=== PATIENT | female | born 1955 | race Caucasian/White ===

== ENCOUNTER 2019-12-17 09:23 | Outpatient (CLI) | payer MEDICARE, OTHER, SELFPAY ==
[2019-12-20 14:18] LABS: Patient Race White; SARS-CoV-2 RNA Undetected (Undetected); SARS-CoV-2 Specimen Source Nasal
== END 2019-12-17 09:43 ==
PROVIDERS: PCP Emergency Medicine; Visit Provider Emergency Medicine
DX: Z11.59 Encounter for screening for other viral diseases (principal)
CPT/HCPCS: U0003

== ENCOUNTER 2020-01-14 01:19 | Outpatient (CLI) | payer MEDICARE, OTHER, SELFPAY ==
--- NOTE | 2020-01-14 08:45 | DI.MAMMO_ITS ---
EXAM: MG MAMMO SCREENING 60 MIN DUR CLINICAL HISTORY: breast cancer screening,Z12.39. TECHNIQUE: Bilateral full field digital CC and MLO mammographic images were obtained with 3D tomosyn thesis and utilizing computer aided detection (CAD). Both conventional and implant displacement views were performed. COMPARISON: Prior mammograms dating back to 2013, the most recent being July 2017. FINDINGS: There are bilateral retropectoral implants. There are no new dominant masses nor malignant appearing microcalcification groups. There is no new architectural distortion nor skin thickening-retraction. IMPRESSION: No radiographic evidence of malignancy. Retropectoral implants again noted. BI-RADS Category 1 - Negative Breast Density - Category B - Scattered areas of fibroglandular density Breast density Category C or D implies that the patient has dense breast tissue. Dense breast tissue can make it harder to find cancer on a mammogram. Dense breast tissue is also associated with an incr eased risk of breast cancer. This information about the result of the mammogram report was provided to the patient to raise their awareness. Use this report when you speak with the patient about their risks for breast cancer, which includes their family history. At that time, you may recommend additional screening tests (Ultrasoun d or MRI) as these tests may add significant information. A negative radiographic report should not delay biopsy if a dominant or clinically suspicious mass is present. Up to ten percent of cancers are not identified on mammography. A negative report may reinforce clinical impression. Adenosis and dense breasts may obscure an underlying neoplasm. False positive reports average 6 to 10%. Patient will receive a letter notifying them of these results.
== END 2020-01-14 01:39 ==
PROVIDERS: PCP Emergency Medicine; Visit Provider Emergency Medicine
DX: Z12.31 Encounter for screening mammogram for malignant neoplasm of breast (principal); Z98.82 Breast implant status
CPT/HCPCS: 77063; 77067

== ENCOUNTER → 2020-02-28 14:59 | Outpatient (BNVA) | payer MEDICARE, OTHER, SELFPAY | PROVIDERS: PCP Emergency Medicine; Referring Provider Emergency Medicine; Visit Provider Physical Therapy Assistant | DX: Z12.11 Encounter for screening for malignant neoplasm of colon (principal); Z80.0 Family history of malignant neoplasm of digestive organs ==

== ENCOUNTER 2020-03-06 04:28 | Outpatient (CLI) | payer MEDICARE, OTHER, SELFPAY ==
[2020-03-07 22:11] LABS: COVID-19 RT-PCR Result NEGATIVE (Negative)
== END 2020-03-06 04:48 ==
PROVIDERS: PCP Emergency Medicine; Visit Provider Surgery
DX: Z11.52 Encounter for screening for COVID-19 (principal); Z01.818 Encounter for other preprocedural examination
CPT/HCPCS: U0003

== ENCOUNTER 2020-03-06 18:34 | Outpatient (CLI) | payer MEDICARE, OTHER, SELFPAY ==
--- NOTE | 2020-03-06 09:30 | DI.RAD_ITS ---
EXAM: XR FEMUR LT CLINICAL HISTORY: Leg injury, ran into chair, S89.90XA. TECHNIQUE: 2D digital imaging was performed. COMPARISON: No exams were available for comparison FINDINGS: BONES: No acute fracture is present. No bony destructive lesion is seen. Visualized portion of knee a nd hip joints are unremarkable. SOFT TISSUE: Normal. IMPRESSION: No acute fracture or dislocation. DATA REPOSITORY: RADIATION DOSE DELIVERED:
== END 2020-03-06 18:54 ==
PROVIDERS: PCP Emergency Medicine; Visit Provider Nurse Practitioner Family
DX: M79.652 Pain in left thigh (principal); S79.822A Other specified injuries of left thigh, initial encounter; Z11.52 Encounter for screening for COVID-19; Z01.818 Encounter for other preprocedural examination
CPT/HCPCS: 73552; U0003

== ENCOUNTER 2020-03-14 09:53 | Outpatient (CLI) | payer MEDICARE, OTHER, SELFPAY ==
--- NOTE | 2020-03-14 14:47 | DI.RAD_ITS ---
EXAM: XR LUMBAR SPINE COMPLETE CLINICAL HISTORY: left sciatic pain, pain lt hip, M25.552. TECHNIQUE: 2D digital imaging was performed. COMPARISON: No exams were available for comparison FINDINGS: There are no compression fractures. There is mild degenerative anterolisthesis of L4 upon L5 and mod erate disc space narrowing is noted at this level. More advanced disc space narrowing is seen at L5- S1. There posterior epidural leads at L5 level with the subcutaneous device. There is also evidence of previous lower lumbar spine surgery head L4-5 level bone graft material bilaterally. Some degene rative changes seen in the facet joints at the lower 2 levels. Sacroiliac joints appear age-appropri ate. No scoliosis. No osseous lesions. IMPRESSION: Degenerative disc disease. Previous surgery with removal of posterior osseous elements in the lower lumbar spine, bone graft material, and posterior epidural leads. DATA REPOSITORY: RADIATION DOSE DELIVERED:
== END 2020-03-14 10:13 ==
PROVIDERS: PCP Emergency Medicine; Visit Provider Emergency Medicine
DX: M51.16 Intervertebral disc disorders with radiculopathy, lumbar region (principal); M48.07 Spinal stenosis, lumbosacral region; M25.552 Pain in left hip
CPT/HCPCS: 72110

== ENCOUNTER 2020-06-06 08:37 | Outpatient (CLI) | payer MEDICARE, OTHER, SELFPAY ==
[2020-06-07 12:23] LABS: COVID-19 RT-PCR UVMMC Result Negative (Negative)
== END 2020-06-06 08:38 | disposition home or self-care (01) ==
PROVIDERS: PCP Emergency Medicine; Visit Provider Emergency Medicine
DX: Z20.822 Contact with and (suspected) exposure to COVID-19 (principal)
CPT/HCPCS: U0003; U0005

== ENCOUNTER 2020-09-16 02:29 | Outpatient (CLI) | payer MEDICARE, OTHER, SELFPAY ==
--- NOTE | 2020-09-16 08:27 | DI.CT_ITS ---
Exam(s) CT BRAIN NECK CTA EXAM: CT BRAIN NECK CTA CLINICAL HISTORY: pulsatile tinnitus left ear,H93.A2. TECHNIQUE: Imaging Protocol: Axial CT angiography was performed with multi-slice acquisition and mu lti-planar and/or 3D reconstructions. CONTRAST MATERIAL: Intravenous: Omnipaque 350 Contrast volume:structured data in ml COMPARISON: No exams were available for comparison FINDINGS: CT angiography of the cervical cranial region was performed according to the usual protocol with intr avenous infusion of 85 cc of Omnipaque 350.. Initial noncontrast scanning of the head is unremarkable. Visualized lung apices are clear. Visualized portions of thoracic aorta and pulmonary arterial circul ation are unremarkable. There is no evidence of a cervical mass or adenopathy. The tracheal laryngeal structures appear intact. The common, internal, and external carotid arteries are within normal limits in the cervical region w ith no evidence of aneurysm, stenosis, or dissection. The vertebral arteries are unremarkable in appearance in the cervical region with no evidence of aneu rysm, stenosis, or dissection. There is a left dominant vertebral artery. Intracranial portions of the internal carotid arteries appear normal with no evidence of aneurysm, st enosis, or dissection. There is a deformity of the contour of the vessels at the junction of the vertebral arteries and basi lar artery. This may represent tortuous small distal right vertebral artery, a proximal fenestrated segment of the basilar artery, or less likely small thrombus. Additional evaluation with catheter an giography may be considered if clinically indicated. No aneurysm identified in the region of the [id number]. The anterior, middle, and posterior cer ebral arteries and major branches appear intact with no evidence of aneurysm, stenosis, or dissection . No enhancing brain lesion identified. IMPRESSION: Questionable finding at the junction of vertebral arteries and basilar artery, contour deformity may represent tortuosity of the distal right vertebral artery versus fenestration of the proximal basilar artery, thrombus not excluded at this site. Additional evaluation with catheter angiography may be considered if clinically appropriate. RADIATION DOSE DELIVERED: 1,807.93mGy.cmTotal DLP 1,807.93mGy.cm Total DLP CTDIvol DATA REPOSITORY: All CT scans at this facility are submitted to the National Radiology Data Registry (NRDR) Dose Index Registry (DIR) with the [employer] (ACR). RADIATION OPTIMIZATION: All CT scans at this facility use at least one of these dose optimization te chniques: automated exposure control; mA and/or kV adjustment per patient size (includes targeted exa ms where dose is matched to clinical indication); or iterative reconstruction.
[2020-09-16 13:06] LABS: CREATININE 0.5 mg/dL (0.55-1.02)
[2020-09-16] MEDS: Omnipaque 350 MG/ML 100 ML BTL IJ (13:38)
[2020-09-16] MEDS: Normal Saline Flush 10 ML SYR IVP (13:39)
[2020-09-16] MEDS: Normal Saline - Diluent 50 ML VIAL IV (13:39)
== END 2020-09-16 02:49 ==
PROVIDERS: PCP Emergency Medicine; Visit Provider Emergency Medicine
DX: H93.A2 Pulsatile tinnitus, left ear (principal)
CPT/HCPCS: 70496; 70498; 82565; J3490

== ENCOUNTER → 2020-11-27 15:22 | Outpatient (BNVA) | payer MEDICARE, OTHER, SELFPAY | PROVIDERS: PCP Emergency Medicine; Referring Provider Emergency Medicine; Visit Provider Physical Therapy Assistant | DX: Z12.11 Encounter for screening for malignant neoplasm of colon (principal); Z80.0 Family history of malignant neoplasm of digestive organs ==

== ENCOUNTER 2020-12-05 01:46 | Outpatient (CLI) | payer MEDICARE, OTHER, SELFPAY ==
[2020-12-05 10:14] LABS: Source Nasal/Nares
[2020-12-05 12:57] LABS: COVID-19 PCR Negative (Negative)
== END 2020-12-05 01:47 | disposition home or self-care (01) ==
LOC: LBO 01:47
PROVIDERS: PCP Emergency Medicine; Visit Provider Surgery
DX: Z20.822 Contact with and (suspected) exposure to COVID-19 (principal); Z01.818 Encounter for other preprocedural examination
CPT/HCPCS: 87635

== ENCOUNTER 2020-12-08 06:13 | Day surgery (SDC) | payer MEDICARE, OTHER, SELFPAY ==
[2020-12-08 06:25] VITALS: BP 119/63; PULSE 73; RESP 16; TEMP 36.2; O2SAT 98
--- NOTE | 2020-12-08 06:35 | W.COLOREPORT ---
Colonoscopy Report Date of procedure: 12/08/20 Pre-op diagnosis general: Colon cancer screening Post-op diagnosis procedure note: other (polyps and internal hemorrhoid) Procedure: Colonoscopy with polypectomy Surgeon: Carla Gutierres Anesthesia Type: General:No Airway (Rosibel Montes CRNA) Estimated blood loss (mL): 3 Pathology: other (ascending polyp, transverse polyp and sigmoid polyp) Complications: None Disposition: same day Indications: The patient is here for Colonoscopy pre-op. Her last screening was in 2008 and was unremarkable. She has no family history of colon cancer. She has not had any bowel habit changes. -Discussed colonoscopy bowel prep as well as the procedure. Discussed possible complications of the procedure to include bleeding, pain, perforation, missed small lesion/polyp, sore throat, aspiration and adverse reaction to the medications. Questions were answered to patient?s satisfaction. No guarantees were implied or given. Prep: Miralax/Dulcolax Procedure Start Time: 07:30 Procedure End Time: 07:55 Retraction Time: 15 minutes Findings: 3 small polyp internal hemorrhoid tag Procedure Description: After informed consent was obtained the patient was taken to the procedure room and placed in a left decubitous position. Monitors were applied and a time out was done. The patients name, date of , procedure, allergies to medications and metal in their body was reviewed. The patient was then sedated. Once sedated and comfortable a rectal exam was done. External exam was normal. Internal exam revealed a normal sphincter tone and no palpable masses. The scope was then introduced and retro-flexed. One internal hemorrhoid skin tag was identified on retroflexion. No polyps or masses were identified on retro-flexion. The scope was then advanced to the cecum without difficulty. The ileocecal vlave and appendiceal orifice were identified. The prep was adequate. The scope was then slowly retracted over 15 minutes back into the rectum. Polyps were removed with cold forceps in the proximal ascending polyp, proximal transverse polyp and distal sigmoid colon. There was no diverticulosis noted. The scope was removed and the patient was woken up and taken back to Same day surgery in stable condition. The patient tolerated the procedure well and there were no immediate complications. Follow up: The patient should follow up in 5 years unless they develop changes in bowel habits or other new gastrointestinal complaints.
--- NOTE | 2020-12-08 06:36 | W.PM.DSUDISC ---
Discharge Plan Disposition Patient Disposition: HOME Condition: Good Discharge Details Reason For Visit: Colonoscopy Attending Provider: Carla Gutierres Primary Care Provider: Ti Samuels Home Meds and New Rx's Prescriptions: Continued melatonin 5 mg tablet 5 mg PO HS PRNRF: 0 CENTRUM SILVER TABLET 1 EACH tablet 1 ea PO DAILY RF: 0 Discontinued bisacodyl [Dulcolax (bisacodyl)] 5 mg tablet,delayed release (DR/EC) 5 mg PO ONCE Qty: 4 RF: 0 polyethylene glycol 3350 17 gram/dose powder 17 g PO ONCE Qty: 238 RF: 0 Discharge Instructions Instructions: Colorectal Polyps (DC) Additional Instructions: Findings: 3 polyps Internal hemorrhoid Follow up: 5 years Please call if you develop: fevers >101.5 Nausea or Vomiting Abdominal pain that is not transient Rectal bleeding that is more then a tbsp A hard abdomen and inability to pass gas DAY SURGERY UNIT POST ENDOSCOPY INSTRUCTIONS Instructions for everyone who is given Anesthesia: For your safety, please do the following for the next 24 Hours: a. Do not drive or operate dangerous equipment b. Do not drink alcohol beverages or use any recreational drugs for the first 24 hours or while taking pain medications. The medications in your body may have a reaction that can be dangerous. c. Do not make any important decisions or sign any important papers 1. Generally there are no restrictions on your activity after a day or so has gone by, but you may feel a bit fatigued for a few days. 2. After you arrive home you may have a light meal and return to a normal diet as you can tolerate it without feeling sick to your stomach. 3. After surgery, you may feel pain or discomfort. This should be only transient, but if it persists please contact your doctor. 4. If there are any questions regarding the findings of your procedure, please feel free to contact your doctor. 6. If you are unable to contact your doctor with a problem, contact the hospital at [phone]. 7. Continue all your regular medications unless directed otherwise. I understand the above instructions and have no questions. Signature of Patient or Responsible Adult Escort Date/Time Name of Responsible Adult Escort Signature of Nurse Date/Time Activity:: Activity as Tolerated Diet:: As Tolerated Discharge Orders Discharge Orders: Discharge Order (Routine); Ordered 12/08/20 Ordered By: Carla Gutierres
[2020-12-08] MEDS: Lactated Ringers 1,000 ML 80 ML IV (06:56)
--- NOTE | 2020-12-08 07:05 | W.ANESPRE ---
General Info Date of Service Date Performed: 12/08/20 Height: 5 ft 4 in Weight: 64.1 kg Body Mass Index (BMI): 24.3 Surgical Procedure: Operation Date: 12/08/20 07:35 Proposed Procedures Side Surgeon p Colonoscopy Carla Gutierres MD Meds Allergies and Home Medications Allergies Allergy/AdvReac Type Severity Reaction Status Date / Time No Known Drug Allergies Allergy Verified 12/08/20 06:32 Home Medication Medication Instructions Recorded Centrum Silver Tablet 1 ea PO DAILY 02/23/13 melatonin 5 mg tablet 5 mg PO HS PRN 10/30/20 bisacodyl 5 mg tablet,delayed 5 mg PO ONCE #4 tab 11/27/20 release polyethylene glycol 3350 17 17 g PO ONCE #238 g 11/27/20 gram/dose oral powder Current Visit Medications: Current Medications Generic Name Dose Route Start Last Admin Trade Name Freq PRN Reason Stop Dose Admin Hyoscyamine Sulfate 0.125 mg 12/08/20 06:36 Hyoscyamine 0.125 Mg Sl/Oral/Chew SL DIRECTED PRN Ringer's Solution 1,000 mls @ 80 mls/hr 12/08/20 06:00 12/08/20 06:56 IV 01/04/21 23:59 80 mls/hr INFUSION ALEX Administration IV Miscellaneous Supplies 1 each 12/08/20 06:00 Iv Access IV 01/04/21 23:59 DIRECTED ALEX Ondansetron HCl 4 mg 12/08/20 06:36 Ondansetron 4 Mg/2 Ml Vial IVP Q4H PRN PRN Nausea / Vomiting Sodium Chloride 0 ml 12/08/20 06:00 Normal Saline Flush 10 Ml Syr IV 01/04/21 23:59 PRN PRN Sodium Chloride 0 ml 12/08/20 06:00 Normal Saline 10 Ml Vial IJ 01/04/21 23:59 DIRECTED PRN Sterile Water 0 ml 12/08/20 06:00 Water,Injection,Sterile 10 Ml Vial IJ 01/04/21 23:59 DIRECTED PRN PFSH Active Problems Active Problems: Problem Status Onset Code PMB (postmenopausal bleeding) 09/20/16 N95.0 Carpal tunnel syndrome 03/08/13 G56.00 Leg injury S89.90XA History of tinnitus Z86.69 Arthritis M19.90 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 states she has had this all her life, and her PCP stated this shouldnt be a concern. Breast implant status Bronchitis Ear canal papilloma, left Hair loss Kidney infection Pulsatile tinnitus of left ear Spondylolisthesis Surgical History Surgical History H/O colonoscopy History of back surgery 2005-lumbar History of tonsillectomy and adenoidectomy Tobacco Smoking/Tobacco Use Status: Former Tobacco Use Passive smoking exposure: Yes Second hand exposure: Yes Alcohol Alcohol Intake: current Alcohol intake frequency: a few times a week Alcohol type: wine and hard liquor Substance Use Substance use: Rarely Substance use type: marijuana Vital Signs and Lab Results Vital Signs Most Recent Vital Signs in EMR: Most Recent Vital Signs Temp Pulse Resp BP Pulse Ox 36.2 C L 73 16 119/63 98 12/08/20 06:25 12/08/20 06:25 12/08/20 06:25 12/08/20 06:25 12/08/20 06:25 Lab Results Blood Type / Crossmatch: No Data to Display Complete Blood Count: No Data to Display Complete Metabolic Panel: No Data to Display Liver Function Panel: No Data to Display Coagulation Panel: No Data to Display Cardiac Panel: No Data to Display Arterial Blood Gas: No Data to Display Venous Blood Gas: No Data to Display Pancreas Panel: No Data to Display Thyroid Panel: No Data to Display Infectious Disease: Coronavirus (COVID-19)(PCR) Negative (Negative) 12/05/20 09:05 12/05/20 Coronavirus 2019 Source Nasal/Nares 12/05/20 09:05 12/05/20 Blood Cultures: No Data to Display Toxicology Panel: No Data to Display Anesthesia Assessment and Plan Anesthesia History Personal History: No History of Anesthesia Complications Family History: No Family History of Anesthesia Complications Exercise Tolerance Exercise Tolerance: Metabolic Equivalents>4 Pertinent Negatives Pertinent Negatives: No Symptoms of GERD, No Major Cardiovascular Symptoms or Complaints, No Major Pulmonary Symptoms or Complaints and No History of CVA/TIA Cardiac & Pulmonary Exam Cardiac Exam: Normal S1/S2 Heart Sounds Pulmonary Exam: Clear Bilateral Breath Sounds Airway Exam Known Difficult Airway: No Mallampati Class: 3 Mouth Opening: Normal (> 3cm) Thyromental Distance: Greater than 3 cm Neck Range of Motion: Full ROM Neck Circumference: Normal Teeth Condition: Normal Dentition ASA Classification ASA Score: ASA 2 Emergency Case?: No NPO Status NPO Status: NPO Clears >2 hours, Solids >8 hours Anesthesia Plan Resuscitation Status: Full Code Anesthesia Technique: General Anesthesia Airway Planned: Natural Airway Monitors Used: Standard Monitors
[2020-12-08 07:07] VITALS: BMI 24.3
--- NOTE | 2020-12-08 07:39 | BOWEL_PTH ---
PATIENT: Niya Best LOC: [facility] U#:[id number] AGE/SX: 64/F ROOM: RE12/08/[address]: Carla Gutierres MD : [id number] BED: DIS: 12/08/2020 SPEC #: [id number] RECD: 12/08/20 12:40 STATUS: ANGEL REMaryjo #: [id number] MOON: 12/08/20 07:[address]: Carla Gutierres DEPT: Surgical Specimen RECD BY: Bobbi Leyva ENTERED: 12/08/20 12:42 SP TYPE: Bowel OTHR DR: Ti Samuels DO Tissues: 1 - BIOPSY BOWEL 2 - BIOPSY BOWEL 3 - BIOPSY BOWEL Procedures: GROSS AND MICRO LEVEL 4 Comments: [id number]
[2020-12-08 08:09] VITALS: BP 98/61; PULSE 57; RESP 18; TEMP 36.3; O2SAT 96
--- NOTE | 2020-12-08 08:16 | W.ANESPOSTOP ---
Postoperative Evaluation Date, Time and Location Date Performed: 12/08/20 Time Performed: 08:09 Patient Location: Day Surgery Unit Vital Signs Most Recent Imported Vital Signs: Most Recent Vital Signs Temp Pulse Resp BP Pulse Ox 36.3 C L 57 L 18 98/61 L 96 12/08/20 08:09 12/08/20 08:09 12/08/20 08:09 12/08/20 08:09 12/08/20 08:09 Pain Score Most Recent Pain Score: Most Recent Pain Score Pain Level 0 12/08/20 08:09 Assessment Mental Status: Awake (Alert & Oriented to Patient Baseline) Airway and Respiratory Function: Patent airway with normal (patient baseline) respiratory exam Cardiovascular Function: Hemodynamically Stable Hydration Status: Adequately Hydrated Nausea & Vomiting: No Nausea or Vomiting Pain: Pt. Denies Any Pain Peripheral Nerve Block: Patient did not receive a nerve block
[2020-12-08 08:37] VITALS: BP 112/70; PULSE 55; RESP 16; TEMP 36.5; O2SAT 99
== END 2020-12-08 09:11 | disposition home or self-care (01) ==
PROVIDERS: PCP Emergency Medicine; Visit Provider Surgery
PROC: 0DJD8ZZ Inspection of Lower Intestinal Tract, Via Natural or Artificial Opening Endoscopic (ICD-10-PCS; CPT 45378; principal; 2020-12-08 07:30)
DX: Z12.11 Encounter for screening for malignant neoplasm of colon (principal); D12.2 Benign neoplasm of ascending colon; K64.8 Other hemorrhoids; D12.3 Benign neoplasm of transverse colon; D12.5 Benign neoplasm of sigmoid colon
CPT/HCPCS: 45380; 88305; J2001; J2405

== ENCOUNTER 2021-05-08 02:03 | Outpatient (CLI) | payer MEDICARE, OTHER, SELFPAY ==
--- NOTE | 2021-05-08 06:45 | DI.DEXA_ITS ---
Exam(s) XR DEXA BONE DENSITY W/WO DAKSHA EXAM: XR DEXA BONE DENSITY W/WO DAKSHA CLINICAL HISTORY: SCREENING FOR OSTEOPOROSIS IN POSTMENOPAUSAL WOMAN,Z78.0 TECHNIQUE: COMPARISON: No exams were available for comparison FINDINGS: Lateral Spine Image: Unremarkable. No compression deformities identified. Left hip: Total T-Score: -0.2 Total Z-Score: 1.2 T- and Z-scores: Within normal limits. There is osteopenia in the left femoral neck with a T-score of -1.1. Lumbar Spine: Total T-Score: 1.6 Total Z-Score: 3.6 T- and Z-scores: Within normal limits. IMPRESSION: No evidence of osteoporosis.
== END 2021-05-08 02:23 ==
PROVIDERS: PCP Nurse Practitioner; Visit Provider Nurse Practitioner
DX: Z78.0 Asymptomatic menopausal state (principal); Z13.820 Encounter for screening for osteoporosis; M85.88 Other specified disorders of bone density and structure, other site
CPT/HCPCS: 77080

== ENCOUNTER 2021-05-08 03:29 | Outpatient (CLI) | payer MEDICARE, SELFPAY ==
[2021-05-08 09:50] LABS: Calculated LDL 145 mg/dL (<100); Cholesterol 213 mg/dL (<200); Glucose 80 mg/dL (74-106); HDL Cholesterol 52 mg/dL (40-60); Triglyceride 83 mg/dL (<150)
== END 2021-05-08 03:30 | disposition home or self-care (01) ==
LOC: LBO 03:29
PROVIDERS: PCP Nurse Practitioner; Visit Provider Nurse Practitioner
DX: Z13.6 Encounter for screening for cardiovascular disorders (principal); Z13.1 Encounter for screening for diabetes mellitus
CPT/HCPCS: 36415; 77080; 80061; 82947

== ENCOUNTER 2021-06-16 00:50 | Outpatient (CLI) | payer MEDICARE, SELFPAY ==
--- NOTE | 2021-06-16 14:15 | DI.MAMMO_ITS ---
Exam(s) MG MAMMO SCREENING 60 MIN DUR EXAM: MG MAMMO SCREENING 60 MIN DUR CLINICAL HISTORY: has implants SCREENING FOR BREAST CANCER Z12.31. TECHNIQUE: Bilateral full field digital CC and MLO mammographic images were obtained with 3D tomosyn thesis and utilizing computer aided detection (CAD). COMPARISON: Prior mammograms were reviewed, the most recent being December 2019. FINDINGS: Both conventional as well as implant displacement views were performed.. Again noted are bilateral retropectoral breast implants There are no new spiculated masses nor malignant appearing microcalcification groups. There is no significant architectural distortion nor skin thickening-retraction. IMPRESSION: No radiographic evidence of malignancy. BI-RADS Category 1 - Negative Breast Density - Category B - Scattered areas of fibroglandular density Breast density Category C or D implies that the patient has dense breast tissue. Dense breast tissue can make it harder to find cancer on a mammogram. Dense breast tissue is also associated with an incr eased risk of breast cancer. This information about the result of the mammogram report was provided to the patient to raise their awareness. Use this report when you speak with the patient about their risks for breast cancer, which includes their family history. At that time, you may recommend additional screening tests (Ultrasoun d or MRI) as these tests may add significant information. A negative radiographic report should not delay biopsy if a dominant or clinically suspicious mass is present. Up to ten percent of cancers are not identified on mammography. A negative report may reinforce clinical impression. Adenosis and dense breasts may obscure an underlying neoplasm. False positive reports average 6 to 10%. Patient will receive a letter notifying them of these results.
== END 2021-06-16 01:10 ==
PROVIDERS: PCP Nurse Practitioner; Visit Provider Nurse Practitioner
DX: Z12.31 Encounter for screening mammogram for malignant neoplasm of breast (principal); Z98.82 Breast implant status
CPT/HCPCS: 77063; 77067

== ENCOUNTER 2021-06-18 20:07 | Outpatient (REF) | payer MEDICARE, OTHER, SELFPAY ==
[2021-06-20 11:19] LABS: COVID-19 RT-PCR UVMMC Result Negative (Negative)
== END 2021-06-18 20:08 | disposition home or self-care (01) ==
LOC: LBN 20:07
PROVIDERS: PCP Nurse Practitioner; Visit Provider Family Medicine
DX: Z20.822 Contact with and (suspected) exposure to COVID-19 (principal)
CPT/HCPCS: U0003; U0005

== ENCOUNTER 2022-06-04 02:04 | Outpatient (CLI) | payer MEDICARE, OTHER, SELFPAY ==
[2022-06-04 08:29] LABS: HCT 43.5 % (36.0-46.0); HGB 14.9 g/dL (11.2-15.7); MCHC 34.3 % (32.0-36.0); MCV 91 fL (80-95); MPV 8.9 fL (8.0-11.0); Platelet Count 245 10^3/uL (130-400); RDW 11.9 % (11.7-14.6); RDW-SD 39.4 fL; WBC 7.48 10^3/uL (4.4-10.8)
[2022-06-04 09:27] LABS: ALT 37 U/L (14-59); AST 23 U/L (15-37); Albumin 3.9 g/dL (3.4-5.0); Alkaline Phosphatase 45 U/L (46-116); Anion Gap 6.5 mmol/L (3-11); BUN 16 mg/dL (7-18); Bilirubin, Total 1.4 mg/dL (0.2-1.0); CO2 30.5 mmol/L (21.0-32.0); CREATININE 0.8 mg/dL (0.55-1.02); Calcium 8.8 mg/dL (8.5-10.1); Calculated LDL 128 mg/dL (<100); Chloride 101 mmol/L (98-107); Cholesterol 200 mg/dL (<200); Estimated GFR 80.21 (mL/min/1.73m2); Glucose 86 mg/dL (74-106); HDL Cholesterol 57 mg/dL (40-60); Potassium 3.5 mmol/L (3.5-5.1); Sodium 138 mmol/L (136-145); Total Protein 7.7 g/dL (6.4-8.2); Triglyceride 75 mg/dL (<150)
== END 2022-06-04 02:05 | disposition home or self-care (01) ==
PROVIDERS: PCP Nurse Practitioner Family; Visit Provider Nurse Practitioner Family
DX: E78.00 Pure hypercholesterolemia, unspecified (principal); E78.5 Hyperlipidemia, unspecified; M43.10 Spondylolisthesis, site unspecified; Z00.00 Encounter for general adult medical examination without abnormal findings; M21.612 Bunion of left foot
CPT/HCPCS: 36415; 80053; 80061; 85027

== ENCOUNTER 2023-06-30 16:38 | Outpatient (REF) | payer MEDICARE, SELFPAY ==
[2023-06-30 15:33] LABS: ALT 36 U/L (14-59); AST 19 U/L (15-37); Alkaline Phosphatase 43 U/L (46-116); Anion Gap 9.5 mmol/L (3-11); BUN 13 mg/dL (7-18); Bilirubin, Total 1.8 mg/dL (0.2-1.0); CO2 27.5 mmol/L (21.0-32.0); CREATININE 0.7 mg/dL (0.55-1.02); Calcium 9.1 mg/dL (8.5-10.1); Calculated LDL 173 mg/dL (<100); Chloride 106 mmol/L (98-107); Cholesterol 256 mg/dL (<200); Estimated GFR 93.56 (mL/min/1.73m2); Glucose 84 mg/dL (74-106); HDL Cholesterol 66 mg/dL (40-60); Potassium 4.2 mmol/L (3.5-5.1); Sodium 143 mmol/L (136-145); TSH (W/Ref FT4) 2.37 uIU/mL (0.36-3.74); Total Protein 7.3 g/dL (6.4-8.2); Triglyceride 86 mg/dL (<150)
== END 2023-06-30 16:39 | disposition home or self-care (01) ==
LOC: LBN 16:38
PROVIDERS: PCP Nurse Practitioner Family; Visit Provider Nurse Practitioner Family
DX: E78.00 Pure hypercholesterolemia, unspecified (principal); Z00.00 Encounter for general adult medical examination without abnormal findings
CPT/HCPCS: 80053; 80061; 84443

== ENCOUNTER 2023-10-06 03:48 | Outpatient (CLI) | payer MEDICARE, SELFPAY ==
[2023-10-06 12:53] LABS: ALT 27 U/L (14-59); AST 24 U/L (15-37); Albumin 3.8 g/dL (3.4-5.0); Alkaline Phosphatase 42 U/L (46-116); Anion Gap 6.9 mmol/L (3-11); BUN 12 mg/dL (7-18); Bilirubin, Direct 0.2 mg/dL (0.0-0.2); Bilirubin, Total 1.56 mg/dL (0.2-1.0); CO2 30.1 mmol/L (21.0-32.0); CREATININE 0.7 mg/dL (0.55-1.02); Calcium 9.1 mg/dL (8.5-10.1); Chloride 103 mmol/L (98-107); Estimated GFR 93.56 (mL/min/1.73m2); Glucose 86 mg/dL (74-106); Potassium 3.9 mmol/L (3.5-5.1); Sodium 140 mmol/L (136-145); Total Protein 7.5 g/dL (6.4-8.2)
== END 2023-10-06 03:49 | disposition home or self-care (01) ==
LOC: LOS 03:49
PROVIDERS: PCP Nurse Practitioner Family; Visit Provider Nurse Practitioner Family
DX: R17 Unspecified jaundice (principal)
CPT/HCPCS: 36415; 80053; 82248

== ENCOUNTER 2023-10-24 01:15 | Outpatient (CLI) | payer MEDICARE, SELFPAY ==
--- NOTE | 2023-10-24 08:00 | DI.MAMMO_ITS ---
Exam(s) MG MAMMO SCREENING 60 MIN DUR EXAM: MG MAMMO SCREENING 60 MIN DUR CLINICAL HISTORY: breast cancer screening,implants,z12.31 TECHNIQUE: Bilateral full field digital CC and MLO mammographic images were obtained with 3D tomosyn thesis and utilizing computer aided detection (CAD). Implant displaced views were performed in rishi tion to the routine views. COMPARISON: 2015 through 2021 FINDINGS: The breasts are composed of scattered fibroglandular densities, Breast Density category B. No suspicious masses or suspicious microcalcifications are seen. No skin thickening or abnormal axillary lymph nodes are seen. Bilateral saline implants appear intac t. There has been no significant change from prior exams. IMPRESSION: BI-RADS Category 1, Negative mammogram Yearly screening mammography is recommended. Breast Density - Category B, scattered fibroglandular densities. A negative radiographic report should not delay biopsy if a dominant or clinically suspicious mass is present. Up to ten percent of cancers are not identified on mammography. A negative report may reinforce clinical impression. Adenosis and dense breasts may obscure an underlying neoplasm. False positive reports average 6 to 10%. Patient will receive a letter notifying them of these results.
== END 2023-10-24 01:35 ==
LOC: DI 01:15
PROVIDERS: PCP Nurse Practitioner Family; Visit Provider Nurse Practitioner Family
DX: Z12.31 Encounter for screening mammogram for malignant neoplasm of breast (principal)
CPT/HCPCS: 77063; 77067

== ENCOUNTER 2024-07-23 12:15 | Outpatient (CLI) | payer MEDICARE, SELFPAY ==
--- NOTE | 2024-07-23 11:00 | DI.RAD_ITS ---
Exam(s) XR CHEST 2V PA LATERAL EXAM: XR CHEST 2V PA LATERAL CLINICAL HISTORY: eval pna, COUGH, R05.9. TECHNIQUE: 2D digital imaging was performed. COMPARISON: CR from 12/07/2016 FINDINGS: 2 views: Heart size is normal. The mediastinum is not widened. Lungs are clear. No infiltrates nor pleural effusions. Bilateral breast implants. Also noted are multiple calcific densities in the region of the right humeral head and 1 calcific den sity in the subacromial space of the opposite-left shoulder. There is a possibly that the findings i n the right shoulder may be artifactual related to clothing. IMPRESSION: No acute pulmonary findings.Shoulder findings as above. DATA REPOSITORY: RADIATION DOSE DELIVERED:
== END 2024-07-23 12:35 ==
LOC: DI 12:16
PROVIDERS: PCP Nurse Practitioner Family; Visit Provider Nurse Practitioner Family
DX: R05.9 Cough, unspecified (principal)
CPT/HCPCS: 71046

== ENCOUNTER 2024-09-03 09:07 | Outpatient (CLI) | payer MEDICARE, SELFPAY ==
[2024-09-03 12:38] LABS: ALT 34 U/L (14-59); AST 20 U/L (15-37); Albumin 3.7 g/dL (3.4-5.0); Alkaline Phosphatase 50 U/L (46-116); Anion Gap 5.6 mmol/L (3-11); BUN 14 mg/dL (7-18); Bilirubin, Total 1.4 mg/dL (0.2-1.0); CO2 31.4 mmol/L (21.0-32.0); Calcium 9.2 mg/dL (8.5-10.1); Calculated LDL 184 mg/dL (<100); Chloride 104 mmol/L (98-107); Cholesterol 266 mg/dL (<200); Estimated GFR 96.50 (mL/min/1.73m2); Glucose 88 mg/dL (74-106); HDL Cholesterol 60 mg/dL (>or=50); Potassium 3.9 mmol/L (3.5-5.1); Sodium 141 mmol/L (136-145); Total Protein 7.6 g/dL (6.4-8.2); Triglyceride 114 mg/dL (<150)
[2024-09-03 14:17] LABS: Hemoglobin A1C 5.1 % (<5.7)
== END 2024-09-03 09:08 | disposition home or self-care (01) ==
LOC: LOS 09:08
PROVIDERS: PCP Nurse Practitioner Family; Referring Provider Nurse Practitioner Family; Visit Provider Nurse Practitioner Family
DX: E78.00 Pure hypercholesterolemia, unspecified (principal); Z00.00 Encounter for general adult medical examination without abnormal findings; R17 Unspecified jaundice; R73.01 Impaired fasting glucose
CPT/HCPCS: 36415; 80053; 80061; 83036

== ENCOUNTER 2024-10-23 08:13 | Outpatient (CLI) | payer MEDICARE, SELFPAY ==
--- NOTE | 2024-10-23 05:45 | DI.RAD_ITS ---
Exam(s) XR FOOT LT COMPLETE XR FOOT RT COMPLETE EXAM: XR FOOT RT COMPLETE CLINICAL HISTORY: Right foot pain,m79.672. TECHNIQUE: 2D digital imaging was performed. Three views of both feet. COMPARISON: CR XR FOOT LT COMPLETE from 10/23/2024 FINDINGS: BONES: No acute fracture is present. No bony destructive lesion is seen. Small plantar calcaneal spur on the left heel. JOINTS: No dislocation present. There is moderate narrowing of the 1st MTP joints and mild periarticular spurring which is roughly symmetric bilaterally. Minute hallux valgus bilaterally. The plantar arches are maintained. SOFT TISSUE: Normal. IMPRESSION: Moderate degenerative changes of both 1st MTP joints. DATA REPOSITORY: RADIATION DOSE DELIVERED:
== END 2024-10-23 08:33 ==
PROVIDERS: PCP Nurse Practitioner Family; Visit Provider Podiatrist
DX: M19.071 Primary osteoarthritis, right ankle and foot (principal); B07.0 Plantar wart; M79.671 Pain in right foot; M79.672 Pain in left foot; M20.21 Hallux rigidus, right foot; M20.22 Hallux rigidus, left foot; B35.1 Tinea unguium; Q82.8 Other specified congenital malformations of skin; L84 Corns and callosities; M21.612 Bunion of left foot; M21.611 Bunion of right foot
CPT/HCPCS: 17110; 99204; 73630

== ENCOUNTER 2024-11-01 04:03 | Outpatient (CLI) | payer MEDICARE, SELFPAY ==
--- NOTE | 2024-11-01 06:15 | DI.US_ITS ---
Exam(s) US AAA SCREENING EXAM: US AAA SCREENING CLINICAL HISTORY: Annual exam,H/O TOBACCO USE, ? AAA COMPARISON: No exams were available for comparison FINDINGS: Abdominal Aorta: Proximal: 2.4 x 2.3 cm Mid: 2.0 x 2.1 cm Distal: 1.4 x 1.6 cm Iliac's: Right: 0.9 x 1.0 cm Left: 1.3 x 1.2 cm Atherosclerotic calcification is present. IMPRESSION: No evidence of abdominal aortic aneurysm. DATA REPOSITORY:
--- NOTE | 2024-11-01 10:57 | DI.MAMMO_ITS ---
Exam(s) MG MAMMO SCREENING 60 MIN DUR EXAM: MG MAMMO SCREENING 60 MIN DUR CLINICAL HISTORY: breast cancer screening,IMPLANTS,Z12.31 TECHNIQUE: Bilateral full field digital CC and MLO mammographic images were obtained with 3D tomosynthesis and utilizing computer aided detection (CAD). COMPARISON: Comparison is made with prior examinations. FINDINGS: The patient has bilateral breast implants which appears stable. Masses/Architectural Distortion: No suspicious masses or areas of architectural distortion are present. Microcalcifications: No suspicious pleomorphic-type are seen. Skin Thickening/Nipple Retraction: None. IMPRESSION: 1. No significant interval change with no specific features of malignancy noted. 2. Unless there is more urgent need, screening mammography is recommended, as per [place] [employer] guidelines. BI-RADS Category 1 - Negative Breast Density - Category B - There are scattered areas of fibroglandular density. Breast density Category C or D implies that the patient has dense breast tissue. Dense breast tissue can make it harder to find cancer on a mammogram. Dense breast tissue is also associated with an increased risk of breast cancer. This information about the result of the mammogram report was provided to the patient to raise their awareness. Use this report when you speak with the patient about their risks for breast cancer, which includes their family history. At that time, you may recommend additional screening tests (Ultrasound or MRI) as these tests may add significant information. A negative radiographic report should not delay biopsy if a dominant or clinically suspicious mass is present. Up to ten percent of cancers are not identified on mammography. A negative report may reinforce clinical impression. Adenosis and dense breasts may obscure an underlying neoplasm. False positive reports average 6 to 10%. Patient will receive a letter notifying them of these results.
--- NOTE | 2024-11-01 12:30 | DI.DEXA_ITS ---
Exam(s) XR DEXA BONE DENSITY W/WO DAKSHA EXAM: XR DEXA BONE DENSITY W/WO DAKSHA CLINICAL HISTORY: screening, POSTMENOPAUSAL STATUS,Z78.0 TECHNIQUE: COMPARISON: CR XR DEXA BONE DENSITY W/WO DAKSHA from 05/08/2021 FINDINGS: Lateral Spine Image: Unremarkable. No compression deformities identified. Left hip: Total T-Score: -0.3. This compares to -0.2 on the prior examination. Total Z-Score: 1.3 T- and Z-scores: There is no evidence of osteoporosis. Lumbar Spine: Total T-Score: 0.8. This compares to 1.7 on the prior examination. Total Z-Score: 2.9 T- and Z-scores: Within normal limits. IMPRESSION: No evidence of osteoporosis.
== END 2024-11-01 04:23 ==
LOC: DI 04:03
PROVIDERS: PCP Nurse Practitioner Family; Visit Provider Nurse Practitioner Family
DX: Z12.31 Encounter for screening mammogram for malignant neoplasm of breast (principal); Z87.891 Personal history of nicotine dependence; Z78.0 Asymptomatic menopausal state; Z13.6 Encounter for screening for cardiovascular disorders; Z13.820 Encounter for screening for osteoporosis
CPT/HCPCS: 76706; 77063; 77067; 77080

== ENCOUNTER → 2024-12-04 08:56 | Outpatient (BNVA) | payer MEDICARE, SELFPAY | PROVIDERS: PCP Nurse Practitioner Family; Referring Provider Nurse Practitioner Family; Visit Provider Podiatrist | DX: B07.0 Plantar wart (principal); B35.1 Tinea unguium; L84 Corns and callosities; M25.571 Pain in right ankle and joints of right foot; M20.21 Hallux rigidus, right foot; M20.22 Hallux rigidus, left foot; M79.672 Pain in left foot; Q82.8 Other specified congenital malformations of skin; M21.612 Bunion of left foot | CPT/HCPCS: 99213; 17110 ==

== ENCOUNTER 2024-12-13 03:31 | Outpatient (CLI) | payer MEDICARE, SELFPAY ==
[2024-12-13 07:44] LABS: Abs Immature Grans 0.02 10^3/uL (0.0-0.06); HCT 44.4 % (36.0-46.0); HGB 15.0 g/dL (11.2-15.7); Immature Grans % 0.3 %; MCH 30.9 pg (27.0-33.0); MCHC 33.8 % (32.0-36.0); MCV 91 fL (80-95); MPV 8.7 fL (8.0-11.0); Platelet Count 262 10^3/uL (130-400); RBC 4.86 10^6/uL (3.93-5.22); RDW 11.9 % (11.7-14.6); RDW-SD 40.0 fL; WBC 7.56 10^3/uL (4.4-10.8)
[2024-12-13 08:02] LABS: INR 1.0 (0.9-1.1); Prothrombin Time 10.0 sec (9.1-11.1)
[2024-12-13 08:34] LABS: ALT 32 U/L (14-59); AST 20 U/L (15-37); Albumin 3.7 g/dL (3.4-5.0); Alkaline Phosphatase 51 U/L (46-116); Bilirubin, Direct 0.2 mg/dL (0.0-0.2); Bilirubin, Total 1.4 mg/dL (0.2-1.0); GGT 9 U/L (5-55); LDH 190 U/L (81-234); Total Protein 7.7 g/dL (6.4-8.2)
[2024-12-14 10:12] LABS: Hepatitis A Antibody IgM Negative (Negative); Hepatitis C Ab w Rflx HCV PCR Negative (Negative)
== END 2024-12-13 03:32 | disposition home or self-care (01) ==
LOC: LBO 03:31
PROVIDERS: PCP Nurse Practitioner Family; Visit Provider Nurse Practitioner Family
DX: R17 Unspecified jaundice (principal)
CPT/HCPCS: 36415; 80076; 86704; 86709; 86803; 87340; 82977; 83615; 85025; 85045; 85610

== ENCOUNTER → 2024-12-18 00:44 | Outpatient (CLI) | payer MEDICARE, SELFPAY ==
--- NOTE | 2024-12-18 06:15 | DI.US_ITS ---
Exam(s) US ABDOMEN EXAM: US ABDOMEN CLINICAL HISTORY: elevated bilirubin, ? liver, gallbladder, pancreas,jaundice,r17 TECHNIQUE: Ultrasound abdomen performed using standard protocol. COMPARISON: US US AAA SCREENING from 11/01/2024 FINDINGS: ABDOMINAL AORTA AND IVC: Visualized portions normal caliber. PANCREAS: Normal where visualized. LIVER: Normal. Hepatopetal flow in the Portal Vein. No evidence of a hepatic mass. The liver measures 17.2cm long. GALLBLADDER:There are mobile gallstones present. The largest measures 2.3 cm. No evidence of wall thickening. No pericholecystic fluid identified. BILIARY SYSTEM: Common bile duct measures < 7 mm. No intrahepatic biliary ductal dilation. SINGLETON'S SIGN: Negative. KIDNEYS: Kidneys are symmetric in size. No evidence of renal calculi. No evidence of hydronephrosis. No renal mass or cyst identified. SPLEEN: Not enlarged. ASCITES: None seen. IMPRESSION: Cholelithiasis. No evidence to suggest acute cholecystitis. DATA REPOSITORY:
== END ==
LOC: DI 00:44
PROVIDERS: PCP Nurse Practitioner Family; Visit Provider Nurse Practitioner Family
DX: K80.80 Other cholelithiasis without obstruction (principal)
CPT/HCPCS: 76700